=== PATIENT | female | born 1970 | race Caucasian/White ===

== ENCOUNTER 2024-11-04 07:18 | Emergency (ER) | payer BC, SELFPAY ==
[2024-11-04 07:36] VITALS: BP 123/80
[2024-11-04 07:42] VITALS: BMI 27.3
[2024-11-04 07:57] LABS: Urine Albumin 3+ (Neg - Trace); Urine Bilirubin Negative (Negative); Urine Character Very Cloudy (Clear); Urine Color Red; Urine Glucose Negative (Negative); Urine Ketone Negative (Negative); Urine Leukocyte 2+ (Negative); Urine Nitrite Negative (Negative); Urine Occult Blood 4+ (Negative); Urine Specific Gravity 1.025 (<1.030); Urine Urobilinogen Negative (Neg - 1+)
[2024-11-04 08:00] VITALS: BP 124/81
[2024-11-04 08:34] LABS: Urine Squamous Cell 0-2 /LPF (Few)
[2024-11-04 08:35] LABS: Urine Amorphous Seen; Urine Red Blood Cell >100 /HPF (0-2); Urine White Cell 40-50 /HPF (0-5)
[2024-11-04 08:40] LABS: Urine Bacteria Few (Negative)
--- NOTE | 2024-11-04 08:43 | ED.GENMED ---
History of Present Illness
General
Chief Complaint: Urinary Symptoms
Source: patient
Time Seen by Provider: 11/04/24 07:46
History of Present Illness
History of Present Illness:
54-year-old female with past medical history of breast cancer, currently not undergoing any treatments, presenting to the ER for evaluation after waking up this morning with urinary frequency, mild dysuria and hematuria noting a small clot which had
her concerned given her history of breast cancer. Patient states that a couple of days ago she did notice a little bit of pain in her right flank which was reminiscent of a time when she had a ' kidney infection' but that pain got better after a
few hours and has not returned since. Patient denies any nausea or vomiting, bowel changes, fevers, chills, rigors. She does note a history of urinary tract infections in the past but states has not had 1 in at least 3 years. Social history was
noncontributory denies any cigarettes or tobacco use.
Past History
Past History
ED Past Medical History: Cancer
ED Past Surgical History: Orthopedic
Social History
Tobacco: Non-smoker
Alcohol: None
Drug: None
Personal:
Living: with family
Employment: Employed
Family History
Family History: Other (Noncontributory)
Review of Systems
Review of Systems
All Other Systems: ROS reviewed and negative except as documented in HPI and ROS
Phy Exam
Physical Exam
Physical Exam:
GENERAL: Alert , in no apparent distress
EYE: clear conjunctiva b/l
HEAD: NCAT
ENT: o/p clr, mmm.
ABDOMEN: Soft, suprapubic tenderness, no r/g, no cvat
NEUROLOGICAL: Alert and oriented
SKIN: Warm and dry, skin intact.
MUSCULOSKELETAL: No edema, well perfused.
PSYCH: Normal and appropriate interaction.
Scores
Heart Failure Risk
Heart Failure Risk Score: Not Applicable
Heart Score for Chest Pain Patients
STEMI patient?: Not applicable
Withdrawal Assessment of Alcohol
Withdrawal Assessment Completed?: Not applicable
Course
Orders/Labs/Results
Orders:
Orders
11/04/24 07:28
Urinalysis Reflex To Culture Urgent
Date Specimen was Collected: 11/04/24
Time Specimen was Collected: :
Urine Microscopic Reflex Cult Urgent
Urine Culture Urgent
YEN Source: U
Specimen Description:
Date Specimen was Collected: 11/04/24
Time Specimen was Collected: :
Abnormal Lab Results
11/04/24
07:28
Ur Occult Blood Reflex 4+ A
(Negative)
Leukocyte Esterase Rfl 2+ A
(Negative)
Urine RBC >100 A /HPF
(0-2)
Urine WBC (Reflex) 40-50 A /HPF
(0-5)
Urine Bacteria (Reflex) Few A
(Negative)
Urine Albumin (Reflex) 3+ A
(Neg - Trace)
Vital Signs
Initial and Last Documented VS:
Initial Vital Signs
Temp Pulse Resp Pulse Ox
97.7 F 74 16 98
11/04/24 07:22 11/04/24 07:22 11/04/24 07:22 11/04/24 07:22
Last Documented Vital Signs
Temp Pulse Resp BP Pulse Ox
97.7 F 74 16 124/81 100
11/04/24 07:22 11/04/24 08:00 11/04/24 08:00 11/04/24 08:00 11/04/24 07:37
MDM/Problems Addressed
Differential Diagnosis Includes:
Hemorrhagic cystitis, pyelonephritis, renal/ureteral colic, less concern for malignancy given symptoms are occurring with pain/signs of infection
MDM/Problems Addressed:
54-year-old female presenting the ER for evaluation of urinary frequency, slight burning and hematuria that started this morning. She is afebrile and in no acute distress. Will send urinalysis. Discussed indications to check labs and imaging and
at this time patient feels comfortable with waiting for urinalysis results to return. Discussed follow-up measures with family doctor as well as potential need for urology for further work symptoms persist.
Chronic conditions affecting care: Cancer
*Pulse Oximetry
Patient hypoxic: no
*Critical Care Note
Total Time (30-74mins, 75-104mins- exclusive of procedures): Not Applicable
Patient Management
Escalation/DeEscalation of care consider admission/obs:
Patient's urine shows 4+ blood, 2+ leukocytes and 40-50 WBCs most likely signifying infectious etiology. Will treat with oral antibiotics. Patient is otherwise stable for discharge home and aware of return precautions.
ED Attending Note
-
Portions of this chart may have been created with voice recognition software.� Occasional wrong word or��sound alike� substitutions may have occurred due to the inherent limitations of voice recognition software.
Discharge Plan
Departure
Patient Disposition: Home (Routine Discharge)
Date of Disposition: 11/04/24
Time of Disposition: 08:48
Patient with high blood pressure during this ER visit?: No
Discharge Problem:
Acute hemorrhagic cystitis
Instructions: Urinary Tract Infection, Adult (DC)
Prescriptions:
New
sulfamethoxazole-trimethoprim [Bactrim DS] 800-160 mg tablet
1 tab PO BID 7 Days Qty: 14 0RF
phenazopyridine [Pyridium] 200 mg tablet
200 mg PO TID PRN (Reason: Pain) Qty: 8 0RF
Referrals:
UNKNOWN - PT DOES,NOT KNOW [Family Provider] -
Interventions
Interventions:
*Risk Screen - Suicide Last Done: 11/04/24 07:22
*Neglect/Abuse Screening Last Done: 11/04/24 07:22
*ED COVID-19 Vaccine History Last Done: 11/04/24 07:51
*Nursing Disposition Last Done: 11/04/24 09:13
ED-Female Genitourinary Assessment Last Done: 11/04/24 07:51
Discharge Date and Time
Discharge Date/Time: 11/04/24 09:13
Print Language: POLISH
== END 2024-11-04 09:13 | disposition home or self-care (01) ==
LOC: EMR 07:18
PROVIDERS: EMERGENCY PHYSICIAN Emergency Medicine
DX: N30.01 Acute cystitis with hematuria (principal); Z85.3 Personal history of malignant neoplasm of breast; Z87.440 Personal history of urinary (tract) infections
CPT/HCPCS: 99282; 81003; 81015; 87086